=== PATIENT | female | born 1985 | race Caucasian/White ===

== ENCOUNTER 2022-06-09 14:53 | Outpatient (CLI) | payer OTHER, SELFPAY ==
[2022-06-09 17:37] LABS: Albumin* 4.5 g/dL (3.3-5.0); Chloride* 106 mmol/L (96-114)
[2022-06-09 17:38] LABS: Potassium* 4.3 mmol/L (3.6-5.1); Sodium* 137 mmol/L (135-149)
[2022-06-09 17:39] LABS: Cholesterol* 163 mg/dL (90-199)
[2022-06-09 17:40] LABS: Aspartate Amino Transferase* 62 U/L (12-35); Bilirubin Total* 0.4 mg/dL (0.1-1.5); Blood Urea Nitrogen* 9 mg/dL (5-24); Carbon Dioxide* 25 mmol/L (20-32); Creatinine* 0.8 mg/dL (0.5-1.5); Estimated Glomerular Filt Rate 98 ml/min; Glucose* 88 mg/dL (60-115); Total Protein* 7.6 g/dL (6.0-8.3)
[2022-06-09 17:41] LABS: Alanine Aminotransferase* 15 U/L (4-35); Calcium* 8.8 mg/dL (8.4-10.6); HDL Cholesterol* 77 mg/dL (>=50); LDL Cholesterol Calculated 69 mg/dL (<100); Triglycerides* 84 mg/dL (40-149)
[2022-06-09 18:52] LABS: Alkaline Phosphatase* 52 U/L (40-150)
== END 2022-06-09 14:54 | disposition home or self-care (01) ==
PROVIDERS: PCP Family Medicine; Visit Provider Family Medicine
DX: R53.83 Other fatigue (principal); F41.9 Anxiety disorder, unspecified; Z13.6 Encounter for screening for cardiovascular disorders
CPT/HCPCS: 80053; 80061; 84443

== ENCOUNTER 2022-09-12 07:40 | Outpatient (CLI) | payer OTHER, SELFPAY | END 2022-09-12 07:41 | disposition home or self-care (01) | PROVIDERS: PCP Family Medicine; Visit Provider Family Medicine | DX: Z01.419 Encounter for gynecological examination (general) (routine) without abnormal findings (principal); R74.01 Elevation of levels of liver transaminase levels | CPT/HCPCS: 80076 ==

== ENCOUNTER 2023-07-16 11:47 | Outpatient (CLI) | payer OTHER, SELFPAY | END 2023-07-16 11:48 | disposition home or self-care (01) | PROVIDERS: PCP Family Medicine; Visit Provider Nurse Practitioner Family | DX: R19.7 Diarrhea, unspecified (principal) | CPT/HCPCS: 80053; 84443; 85025 ==

== ENCOUNTER 2023-07-17 12:00 | Outpatient (CLI) | payer OTHER, SELFPAY | END 2023-07-17 12:01 | disposition home or self-care (01) | LOC: NFLDREF 07-31 12:37 | PROVIDERS: PCP Family Medicine; Referring Provider Family Medicine; Visit Provider Nurse Practitioner Family | DX: R19.7 Diarrhea, unspecified (principal) | CPT/HCPCS: 87045; 87046; 87177; 87209; 87427; 87493; 87505 ==

== ENCOUNTER 2023-09-07 15:16 | Outpatient (CLI) | payer OTHER, SELFPAY ==
--- NOTE | 2023-09-07 16:00 | US_ITS ---
[facility]: [facility] Facility[facility] Patient ID:?[id number] Site Patient ID:?[id number]. Site :?[id number] Study:?US-Abdomen RUQ-09/07/2023 3:58:46 PM Ordering Physician:FAN ZAPATA Final Report: INDICATION: Right upper quadrant pain. COMPARISON: None available. TECHNIQUE: Ultrasound examination of the right upper quadrant was performed. FINDINGS: There is a mild amount of dependent sludge in the gallbladder. The gallbladder is otherwise normal in appearance with no sign of cholelithiasis or acute cholecystitis. A sonographic Mccain sign is not present, with no pain over the gallbladder during ultrasound examination. The common bile duct is normal in caliber at 5 mm. The pancreatic head and body were examined, and these are normal in appearance. The abdominal aorta and visualized portions of the inferior vena cava are normal in appearance. The liver shows no sign of mass or contour abnormality, and there is no sign of ascites. There is antegrade flow in the main portal vein on color Doppler examination with normal caliber at 10 millimeters. The right kidney is unremarkable. IMPRESSION: 1. Small amount of sludge in the gallbladder which is otherwise normal in appearance. 2. Nothing is seen to suggest acute cholecystitis. 3. No sign of biliary ductal dilatation. Dictated by Sly Hernandez MD @ 09/08/2023 11:14:31 PM Signed by:?Sly Hernandez MD @09/08/2023 11:14:31 PM (Electronic Signature)
== END 2023-09-07 15:17 | disposition home or self-care (01) ==
LOC: US 15:17
PROVIDERS: PCP Family Medicine; Visit Provider Physician Assistant
DX: R10.11 Right upper quadrant pain (principal); R10.30 Lower abdominal pain, unspecified; R19.4 Change in bowel habit
CPT/HCPCS: 76705

== ENCOUNTER 2024-01-11 09:28 | Outpatient (CLI) | payer OTHER, SELFPAY | END 2024-01-11 09:29 | disposition home or self-care (01) | PROVIDERS: PCP Family Medicine; Visit Provider Family Medicine | DX: Z00.00 Encounter for general adult medical examination without abnormal findings (principal); R74.01 Elevation of levels of liver transaminase levels; R23.3 Spontaneous ecchymoses; F41.9 Anxiety disorder, unspecified; F32.A Depression, unspecified; Z86.39 Personal history of other endocrine, nutritional and metabolic disease | CPT/HCPCS: 80053; 80061; 84443 ==